=== PATIENT | female | born 1990 | race Caucasian/White ===

== ENCOUNTER 2016-05-16 15:02 | Emergency (ER) | payer SELFPAY ==
[2016-05-16 15:11] VITALS: RESP 16
--- NOTE | 2016-05-16 15:36 | EDPHY ---
H & P Stated Complaint: fall, hit head Time Seen by Provider: 05/16/16 15:14 HPI/ROS: CHIEF COMPLAINT: Head injury 6 days ago HISTORY OF PRESENT ILLNESS: 25-year-old female arrives via private vehicle states that 6 days ago she took a sleep aid, woke up to go to the bathroom and other had a mechanical a possible syncopal episode. Her boyfriend was with her. There is no seizure activity. No incontinence. No oral trauma. She impacted the occiput of her head. For the past 6 days she has been experiencing mild, nonprogressive headache, difficulty concentrating, photophobia, audio phobia, emotional lability. Denies: Midline C-spine pain, peripheral paresthesia, weakness, numbness, nausea, vomiting, abdominal pain, back pain, gait instability, slurred speech, visual disturbance beyond photophobia PRIMARY CARE PROVIDER: no PCP REVIEW OF SYSTEMS: A ten point review of systems was performed and is negative with the exception of the items mentioned in the HPI PAST MEDICAL/SURGICAL HISTORY: no anticoagulant use, no relevant medical/ surgical history SOCIAL HISTORY: denies alcohol use at time of incident PHYSICAL EXAM 1) GENERAL: Well-developed, well-nourished, alert and oriented. Appears to be in no acute distress. Answering questions appropriately. 2) HEAD: Normocephalic, atraumatic 3) HEENT: Pupils equal, round, reactive to light bilaterally. Negative Horners. Nasopharynx, oropharynx, clear. No deformity or angulation of nose. No septal hematoma. No rhinorrhea. No oral trauma. Ears bilaterally with normal tympanic membranes. No hemotympanum. No fluid or blood in the external auditory canal. No raccoon eyes. No Peralta sign. Teeth are normally aligned with no gross malocclusion, TMJ bilaterally nontender, facial bones nontender including the zygomatic arch, maxilla mandible. 4) NECK: Posterior cervical spine is nontender, no stepoff, no effusion. Full range of motion which does not elicit any midline cervical spine pain, no posterior midline tenderness, no step-off. 5) LUNGS: Clear to auscultation bilaterally, no wheezes, no rhonchi, no retractions. No obvious signs of trauma. No chest wall pain. No flaring, no grunting. Moving symmetrically. No crepitus. 6) HEART: Regular rate and rhythm, 7) ABDOMEN: No guarding, no rebound, no focal tenderness, no peritoneal signs, no signs of trauma, no ecchymosis 8) MUSCULOSKELETAL: Moving all extremities, no focal areas of tenderness, no obvious trauma. 9) BACK: Patient logrolled while holding inline traction.No midline vertebral tenderness, no fluctuance, no step-off, no obvious trauma, no visual or palpable abnormality. 10) SKIN: No laceration. No abrasion 11) NEURO: Awake, alert, and oriented to person, place and time. Answers questions appropriately. There were no obvious focal neurologic abnormalities. No cerebellar dysfunction. Cranial nerves 2 through to 12 intact. Normal steady gait. Upper and lower extremities bilaterally with strength 5 / 5, reflexes 2+. DIFFERENTIAL DIAGNOSIS: [ Not necessarily in any particular order, my differential diagnosis includes, but is not limited to, concussion, skull fracture, intraparenchymal contusion, subarachnoid, subdural and epidural hematoma. The patient understands that this diagnosis is provisional and can never be 100% accurate. - Personal History LMP (Females 10-55): 8-14 Days Ago Current Tetanus Diphtheria and Acellular Pertussis (TDAP): Unsure - Medical/Surgical History Hx Asthma: No Hx Chronic Respiratory Disease: No Hx Diabetes: No Hx Cardiac Disease: No Hx Renal Disease: No Hx Cirrhosis: No Hx Alcoholism: No Hx HIV/AIDS: No Hx Splenectomy or Spleen Trauma: No Other PMH: anorexia, hypothyroid - Social History Smoking Status: Never smoked Constitutional: Initial Vital Signs Temperature (C) 37 C 05/16/16 15:04 Heart Rate 97 05/16/16 15:04 Respiratory Rate 16 05/16/16 15:04 Blood Pressure 135/89 H 05/16/16 15:04 O2 Delivery Mode Room Air O2 (L/minute) 97 Allergies/Adverse Reactions: No Known Drug Allergies Allergy (Verified 05/16/16 15:13) Medical Decision Making ED Course/Re-evaluation: This patient has a nonfocal neurologic exam, negative [place] head injury decision-making tool. Her injury occurred 6 days ago. At this time I do not think that CT imaging of head currently indicated I do not think the benefits outweigh the risks in this patient whom I have a low pretest index suspicion for intracranial hemorrhage and/or skull fracture. I think her symptoms are more likely secondary to post concussive syndrome. Departure - Departure Disposition: Home, Routine, Self-Care Clinical Impression: Head injuries Qualifiers: Encounter type: initial encounter Qualified Code(s): S09.90XA - Unspecified injury of head, initial encounter Concussion Qualifiers: Encounter type: initial encounter Loss of consciousness presence/duration: with LOC of 30 min or less Qualified Code(s): S06.0X1A - Concussion with loss of consciousness of 30 minutes or less, initial encounter Condition: Good Instructions: Concussion (ED) Additional Instructions: ALTHOUGH THERE IS NO EVIDENCE OF SERIOUS HEAD INJURY AT THIS TIME, DELAYED SIGNS CAN APPEAR 24 TO 48 HOURS AFTER INJURY. WE RECOMMEND THAT YOU DESIGNATE A FRIEND OR FAMILY MEMBER TO OBSERVE YOU OVER THE NEXT FEW DAYS TO ENSURE THAT YOUR CONDITION IS PROGRESSING NORMALLY. PLEASE RETURN TO THE EMERGENCY DEPARTMENT (ED) IMMEDIATELY IF YOU HAVE INCREASED HEADACHE, PERSISTENT HEADACHE , VOMITING, WEAKNESS, CONFUSION OR VISUAL PROBLEMS. WE RECOMMEND THAT YOU DO NOT RESUME CONTACT SPORTS OR ACTIVITIES THAT TAKE COORDINATION OR BALANCE SUCH SKIING OR RIDING A BICYCLE UNTIL CLEARED TO DO SO BY YOUR DOCTOR OR BY A NEUROLOGIST. Referrals: Kiana Jaeger MD [Medical Doctor] - 5-7 days, call for appt.
[2016-05-16 16:04] VITALS: BP 128/87; PULSE 88; TEMP 97.7; O2SAT 96
== END 2016-05-16 16:05 | disposition home or self-care (01) ==
DX: S06.0X1A Concussion with loss of consciousness of 30 minutes or less, initial encounter (principal); W22.8XXA Striking against or struck by other objects, initial encounter; Y92.002 Bathroom of unspecified non-institutional (private) residence as the place of occurrence of the external cause